=== PATIENT | male | born 1975 | race Caucasian/White ===

== ENCOUNTER 2022-01-02 18:31 | Observation (INO) ==
[2022-01-03] MEDS ORDERED: Sulfamethox/Trimethoprim DS TAB 800/160 mg PO ONE (02:07)
[2022-01-03 10:19] LABS: ABS Basophils 0.1 10^3/ul (0-0.2); ABS Eosinophils 0.2 10^3/ul (0-0.6); ABS Lymphocytes 3.6 10^3/ul (1.0-4.8); ABS Monocytes 0.5 10^3/ul (0-0.8); ABS Neutrophils 3.5 10^3/ul (1.5-7.7); Eosinophil % 2.3 %; Hematocrit 33 % (42-52); Hemoglobin 10.5 g/dL (14.0-18.0); Mean Corpuscular HGB Conc 32 g/dL (31-36); Mean Corpuscular Hemoglobin 26 pg (27-31); Mean Corpuscular Volume 81 fL (80-94); Mean Platelet Volume 7.3 fL (7.4-10.4); Nucleated Red Blood Cells % 0.3; Platelet Count 257 10^3/uL (150-450); Red Blood Count 4.11 10^6 /uL (4.18-5.48); Red Cell Distribution Width 16 % (10-15); White Blood Count 7.9 10^3/uL (3.5-10.8)
[2022-01-03] MEDS ORDERED: Naloxone 0.4 mg VIAL 0.4 mg/ml 1 ml VIAL IV PUSH ONE (10:42)
[2022-01-03 10:54] LABS: Albumin 3.4 g/dL (3.2-5.2); Calcium 8.8 mg/dL (8.6-10.3); Potassium 4.7 mmol/L (3.5-5.0); Total Bilirubin 0.5 mg/dL (0.2-1.0)
[2022-01-03 11:01] LABS: Albumin/Globulin Ratio 0.9 (1-3); C Reactive Protein 22.35 mg/L (<8.01); Globulin 3.8 g/dL (2-4); Total Protein 7.2 g/dL (6.4-8.9); eGFR CKD-EPI 120.3 (>60)
[2022-01-03 11:37] LABS: Urine Appearance Clear; Urine Bilirubin Negative (Negative); Urine Blood Negative (Negative); Urine Color Yellow; Urine Glucose Negative (Negative); Urine Ketones Negative (Negative); Urine Nitrite Negative (Negative); Urine Protein Negative (Negative); Urine Specific Gravity 1.025 (1.005-1.030); Urine Urobilinogen 0.2 (Negative) (Negative)
[2022-01-03 11:53] LABS: Urine Benzodiazepine Screen Presumptive Positive (None Detect); Urine Cannabinoids Screen Presumptive Positive (None Detect); Urine Opiates Screen Presumptive Positive (None Detect)
[2022-01-03 11:58] LABS: Urine Benzodiazepine Screen Presumptive Positive (None Detect); Urine Buprenorphine Screen None Detected (None Detect); Urine Cannabinoids Screen Presumptive Positive (None Detect); Urine Fentanyl Screen Presumptive Positive (None Detect); Urine Hydrocodone Screen None Detected (None Detect); Urine Opiates Screen Presumptive Positive (None Detect)
[2022-01-03] MEDS ORDERED: Lactated Ringers 1000 ml BAG 1,000 ML IV ONE (14:51)
[2022-01-03] MEDS ORDERED: Enoxaparin 40 MG/0.4 ML SYR SUBCUT SCH (15:00)
[2022-01-03 16:04] LABS: Magnesium 1.9 mg/dL (1.9-2.7)
[2022-01-03 16:22] LABS: Ferritin 60.8 ng/mL (24-336)
[2022-01-03] MEDS: Sulfamethox/Trimethoprim DS TAB 800/160 mg PO SCH (21:08)
[2022-01-04 05:53] LABS: Hematocrit 32 % (42-52); Hemoglobin 10.3 g/dL (14.0-18.0); Mean Corpuscular HGB Conc 33 g/dL (31-36); Mean Corpuscular Hemoglobin 26 pg (27-31); Mean Corpuscular Volume 80 fL (80-94); Mean Platelet Volume 7.5 fL (7.4-10.4); Platelet Count 275 10^3/uL (150-450); Red Blood Count 3.96 10^6 /uL (4.18-5.48); Red Cell Distribution Width 15 % (10-15); White Blood Count 6.2 10^3/uL (3.5-10.8)
[2022-01-04 06:02] LABS: INR 1.09 (0.89-1.11)
[2022-01-04 06:27] LABS: Albumin 3.2 g/dL (3.2-5.2); Albumin/Globulin Ratio 0.9 (1-3); Calcium 8.6 mg/dL (8.6-10.3); Globulin 3.6 g/dL (2-4); Magnesium 1.8 mg/dL (1.9-2.7); Potassium 4.2 mmol/L (3.5-5.0); Total Bilirubin 0.4 mg/dL (0.2-1.0); Total Protein 6.8 g/dL (6.4-8.9); eGFR CKD-EPI 111.1 (>60)
[2022-01-04 06:43] LABS: Folate 10.79 ng/mL (5.90-24.80)
[2022-01-04 07:20] LABS: ABS Basophils 0.1 10^3/ul (0-0.2); ABS Eosinophils 0.2 10^3/ul (0-0.6); ABS Lymphocytes 3.3 10^3/ul (1.0-4.8); ABS Monocytes 0.4 10^3/ul (0-0.8); ABS Neutrophils 2.3 10^3/ul (1.5-7.7); Eosinophil % 2.5 %; Lymphocyte % 52.7 %; Nucleated Red Blood Cells % 0.1
[2022-01-04] MEDS ORDERED: Magnesium Sulfate IV 1GM/100ML 1 GM/100 ML BAG IV ONE (07:42)
[2022-01-04] MEDS: Sulfamethox/Trimethoprim DS TAB 800/160 mg PO SCH ×2 (10:40→10:49)
[2022-01-04 11:49] VITALS: BP 129/77
== END 2022-01-04 16:10 | disposition home or self-care (01) ==
LOC: ED 18:31 → EDHOLD 18:31 → SUATTDRO 01-03 14:46 → EDHOLD 01-03 19:41 → MED 01-03 20:39
PROVIDERS: ADMIT Hospitalist; ATTEND Internal Medicine

== ENCOUNTER 2023-06-29 11:07 | Inpatient (IN) ==
[2023-06-29] MEDS ORDERED: diazePAM INJ CARPUJECT 5 MG/ML SYRINGE ONE (11:16)
[2023-06-29] MEDS: diazePAM INJ CARPUJECT 5 MG/ML SYRINGE IM ONE (11:19)
[2023-06-29] MEDS ORDERED: HYDROmorphone 1 MG/1 ML SYRINGE ONE (11:31)
[2023-06-29] MEDS: HYDROmorphone 1 MG/1 ML SYRINGE IV ONE (11:34)
[2023-06-29 11:54] LABS: ABS Basophils 0.1 10^3/uL (0.0-0.1); ABS Monocytes 0.9 10^3/uL (0.0-1.1); ABS Neutrophils 8.9 10^3/uL (1.5-7.6); ABS Nucleated RBC 0.01 10^3/ul; Eosinophil % 0.1 %; Hematocrit 32.3 % (38-53); Hemoglobin 10.9 g/dL (13.2-16.3); Lymphocyte % 17.1 %; Mean Corpuscular Hemoglobin 25.4 pg (27-33); Mean Corpuscular Hgb Conc 33.9 g/dL (31-36); Mean Corpuscular Volume 75.1 fL (80-97); Mean Platelet Volume 7.6 fL (7.5-11.2); Nucleated Red Blood Cells % 0.1 %/100WBC (0.0-0.8); Platelet Count 511 10^3/uL (150-450); Red Cell Distribution Width 15.1 % (12-17)
[2023-06-29] MEDS: Ondansetron 4 mg VIAL 2 MG/ML 2 ml VIAL IV ONE (12:35)
[2023-06-29] MEDS: cefTRIAXone 1 gm/50 mL D5W 1 GM/50 ML BAG IV ONE (12:35)
[2023-06-29] MEDS: HYDROmorphone 1 MG/1 ML SYRINGE IV SLOW PU ONE ×2 (12:40→14:20)
[2023-06-29] MEDS: NS 0.9% 1000 ml BAG 1,000 ML IV ONE ×2 (12:41→14:20)
[2023-06-29 12:48] LABS: Albumin 3.6 g/dL (3.2-5.2); Albumin/Globulin Ratio 0.9 (1-3); C Reactive Protein 58.42 mg/L (<8.01); Calcium 8.9 mg/dL (8.6-10.3); Creatinine, Serum 0.86 mg/dL (0.67-1.17); Globulin 4.2 g/dL (2-4); Magnesium 1.7 mg/dL (1.9-2.7); Potassium 3.9 mmol/L (3.5-5.0); Total Bilirubin 1.3 mg/dL (0.2-1.0); Total Protein 7.8 g/dL (6.4-8.9); eGFR CKD-EPI 108.8 (>60)
[2023-06-29 13:30] LABS: Erythrocyte Sed Rate 80 mm/Hr (0-14)
[2023-06-29] MEDS: Acetaminophen IV 1 GM/100ML 1,000 MG/100 ML BAG IV ONE (13:38)
[2023-06-29] MEDS: Vancomycin 1,000 MG in NS 0.9% 250 ml 250 ML IVPB ONE (14:20)
[2023-06-29] MEDS ORDERED: Ondansetron 4 mg VIAL 2 MG/ML 2 ml VIAL IV PRN (14:52)
[2023-06-29] MEDS ORDERED: Vancomycin per Pharmacy 1 EA NOTE FOLLOW UP SCH (17:00)
[2023-06-29] MEDS: Cefepime 2 GM in Dextrose 2 GM/50 ML BAG IV SCH (17:56)
[2023-06-29] MEDS: Enoxaparin 40 MG/0.4 ML SYR SUBCUT ONE (17:57)
[2023-06-29] MEDS: HYDROmorphone 1 MG/1 ML SYRINGE IV PRN (18:17)
[2023-06-29] MEDS: Vancomycin 1000 MG in NS 0.9% 250 ML IVPB SCH (19:43)
[2023-06-30] MEDS: Cefepime 2 GM in Dextrose 2 GM/50 ML BAG IV SCH (01:56)
[2023-06-30] MEDS: Vancomycin 1000 MG in NS 0.9% 250 ML IVPB SCH (03:50)
[2023-06-30] MEDS ORDERED: Vancomycin per Pharmacy 1 EA NOTE FOLLOW UP PRN (07:05)
[2023-06-30] MEDS: Polyethylene Glycol 3350 17 GM PACKET PO SCH (09:14)
[2023-06-30] MEDS: Vancomycin Trough Check NOTE FOLLOW UP ONE (12:00)
[2023-06-30 12:18] LABS: Creatinine, Serum 0.75 mg/dL (0.67-1.17); Vancomycin Trough 13.1 mcg/mL; eGFR CKD-EPI 113.4 (>60)
[2023-06-30] MEDS: COWS Protocol Daily Order Reminder FOLLOW UP SCH (16:21)
[2023-06-30] MEDS: Enoxaparin 40 MG/0.4 ML SYR SUBCUT SCH (17:03)
[2023-06-30] MEDS: cefTRIAXone 2 gm/50 mL D5W 2 GM/50 ML BAG IV SCH (17:08)
[2023-07-01 06:33] LABS: ABS Basophils 0.1 10^3/uL (0.0-0.1); ABS Eosinophils 0.2 10^3/uL (0.0-0.5); ABS Monocytes 0.3 10^3/uL (0.0-1.1); ABS Neutrophils 2.7 10^3/uL (1.5-7.6); Eosinophil % 4.2 %; Hematocrit 31.3 % (38-53); Hemoglobin 10.4 g/dL (13.2-16.3); Lymphocyte % 37.2 %; Mean Corpuscular Hemoglobin 25.7 pg (27-33); Mean Corpuscular Hgb Conc 33.3 g/dL (31-36); Mean Corpuscular Volume 77.1 fL (80-97); Mean Platelet Volume 7.6 fL (7.5-11.2); Platelet Count 340 10^3/uL (150-450); Red Blood Count 4.06 10^6/uL (4.06-5.63); Red Cell Distribution Width 14.9 % (12-17); White Blood Count 5.4 10^3/uL (3.6-10.2)
[2023-07-01 07:03] LABS: Calcium 8.3 mg/dL (8.6-10.3); Creatinine, Serum 0.76 mg/dL (0.67-1.17); Magnesium 1.9 mg/dL (1.9-2.7); Potassium 4.6 mmol/L (3.5-5.0)
[2023-07-01] MEDS ORDERED: Magnesium Hydroxide LIQ 30 ML UDC PO PRN (09:05)
[2023-07-01] MEDS ORDERED: ceFAZolin 2 GM in NS PREMIX 2 GM/100 ML BAG IVPB SCH (17:00)
[2023-07-01] MEDS: ceFAZolin 2 GM PREMIX 2 GM/50 ML BAG IV SCH (17:33)
[2023-07-01] MEDS ORDERED: Magnesium Hydroxide LIQ 30 ML UDC PO SCH (21:00)
[2023-07-01] MEDS: Senna TAB 8.6 mg TAB PO PRN (22:14)
[2023-07-01] MEDS: Magnesium Hydroxide LIQ 30 ML UDC PO SCH (22:14)
[2023-07-02 05:26] LABS: ABS Basophils 0.1 10^3/uL (0.0-0.1); ABS Eosinophils 0.2 10^3/uL (0.0-0.5); ABS Lymphocytes 2.6 10^3/uL (1.0-4.8); ABS Monocytes 0.4 10^3/uL (0.0-1.1); ABS Neutrophils 3.1 10^3/uL (1.5-7.6); Eosinophil % 3.8 %; Hematocrit 32.9 % (38-53); Hemoglobin 10.8 g/dL (13.2-16.3); Lymphocyte % 40.8 %; Mean Corpuscular Hemoglobin 25.2 pg (27-33); Mean Corpuscular Hgb Conc 32.7 g/dL (31-36); Mean Platelet Volume 7.7 fL (7.5-11.2); Platelet Count 433 10^3/uL (150-450); Red Blood Count 4.27 10^6/uL (4.06-5.63); Red Cell Distribution Width 15.2 % (12-17); White Blood Count 6.5 10^3/uL (3.6-10.2)
[2023-07-02 05:47] LABS: C Reactive Protein 15.62 mg/L (<8.01); Calcium 8.6 mg/dL (8.6-10.3); Creatinine, Serum 0.84 mg/dL (0.67-1.17); Magnesium 1.9 mg/dL (1.9-2.7); Potassium 4.3 mmol/L (3.5-5.0); eGFR CKD-EPI 109.6 (>60)
[2023-07-02] MEDS: Acetaminophen IV 1 GM/100ML 1,000 MG/100 ML BAG IV PRN (08:03)
[2023-07-02] MEDS: HYDROmorphone 1 MG/1 ML SYRINGE IV PRN (12:43)
[2023-07-03 07:00] LABS: ABS Basophils 0.1 10^3/uL (0.0-0.1); ABS Eosinophils 0.4 10^3/uL (0.0-0.5); ABS Lymphocytes 2.6 10^3/uL (1.0-4.8); ABS Monocytes 0.3 10^3/uL (0.0-1.1); ABS Neutrophils 2.6 10^3/uL (1.5-7.6); Eosinophil % 5.8 %; Hematocrit 32.9 % (38-53); Hemoglobin 10.7 g/dL (13.2-16.3); Lymphocyte % 43.3 %; Mean Corpuscular Hemoglobin 25.1 pg (27-33); Mean Corpuscular Hgb Conc 32.6 g/dL (31-36); Mean Corpuscular Volume 77.1 fL (80-97); Mean Platelet Volume 7.8 fL (7.5-11.2); Platelet Count 414 10^3/uL (150-450); Red Blood Count 4.27 10^6/uL (4.06-5.63); Red Cell Distribution Width 14.9 % (12-17)
[2023-07-03 07:18] LABS: Calcium 8.8 mg/dL (8.6-10.3); Creatinine, Serum 0.74 mg/dL (0.67-1.17); Magnesium 2.1 mg/dL (1.9-2.7); Potassium 4.7 mmol/L (3.5-5.0); eGFR CKD-EPI 113.9 (>60)
[2023-07-04 06:00] LABS: ABS Basophils 0.2 10^3/uL (0.0-0.1); ABS Eosinophils 0.4 10^3/uL (0.0-0.5); ABS Lymphocytes 2.7 10^3/uL (1.0-4.8); ABS Monocytes 0.4 10^3/uL (0.0-1.1); ABS Neutrophils 3.9 10^3/uL (1.5-7.6); ABS Nucleated RBC 0.01 10^3/ul; Eosinophil % 4.9 %; Hematocrit 32.7 % (38-53); Hemoglobin 10.7 g/dL (13.2-16.3); Lymphocyte % 35.6 %; Mean Corpuscular Hemoglobin 25.5 pg (27-33); Mean Corpuscular Hgb Conc 32.7 g/dL (31-36); Mean Corpuscular Volume 77.9 fL (80-97); Mean Platelet Volume 7.7 fL (7.5-11.2); Nucleated Red Blood Cells % 0.1 %/100WBC (0.0-0.8); Platelet Count 391 10^3/uL (150-450); Red Cell Distribution Width 15.2 % (12-17); White Blood Count 7.6 10^3/uL (3.6-10.2)
[2023-07-04] MEDS ORDERED: Bupivacaine 0.25% SDV 30 ML ONE (12:53)
[2023-07-04] MEDS ORDERED: fentaNYL 100 mcg/2 ml 50 MCG/ML VIAL ONE (12:55)
[2023-07-04] MEDS ORDERED: Midazolam 2 mg/2 ml VIAL 1 mg/ml 2 ml VIAL (2 mg) ONE (12:56)
[2023-07-04] MEDS ORDERED: Lidocaine 2% PF 5 ML VIAL ONE (12:57)
[2023-07-04] MEDS ORDERED: Propofol 10 MG/ML 20 ML BTL ONE (12:57)
[2023-07-04] MEDS: Lactated Ringers 1000 ml BAG 1,000 ML IV SCH (17:02)
[2023-07-05] MEDS ORDERED: Vancomycin per Pharmacy 1 EA NOTE FOLLOW UP SCH (03:00)
[2023-07-05] MEDS: Vancomycin 1,500 MG in NS 0.9% 250 ml 250 ML IVPB ONE (03:09)
[2023-07-05 05:05] LABS: ABS Monocytes 0.5 10^3/uL (0.0-1.1); ABS Neutrophils 8.3 10^3/uL (1.5-7.6); ABS Nucleated RBC 0.01 10^3/ul; Eosinophil % 0.1 %; Hematocrit 31.5 % (38-53); Hemoglobin 10.5 g/dL (13.2-16.3); Lymphocyte % 18.8 %; Mean Corpuscular Hemoglobin 25.6 pg (27-33); Mean Corpuscular Hgb Conc 33.3 g/dL (31-36); Mean Platelet Volume 7.8 fL (7.5-11.2); Nucleated Red Blood Cells % 0.1 %/100WBC (0.0-0.8); Platelet Count 400 10^3/uL (150-450); Red Blood Count 4.09 10^6/uL (4.06-5.63); Red Cell Distribution Width 15.1 % (12-17); White Blood Count 10.8 10^3/uL (3.6-10.2)
[2023-07-05 05:21] LABS: Calcium 8.8 mg/dL (8.6-10.3); Creatinine, Serum 0.83 mg/dL (0.67-1.17); Potassium 4.6 mmol/L (3.5-5.0)
[2023-07-05] MEDS: Vancomycin 1000 MG in NS 0.9% 250 ML IVPB SCH (11:43)
[2023-07-05] MEDS: Enoxaparin 40 MG/0.4 ML SYR SUBCUT SCH (15:46)
[2023-07-06 06:35] LABS: ABS Basophils 0.1 10^3/uL (0.0-0.1); ABS Eosinophils 0.2 10^3/uL (0.0-0.5); ABS Lymphocytes 2.9 10^3/uL (1.0-4.8); ABS Monocytes 0.4 10^3/uL (0.0-1.1); ABS Neutrophils 3.3 10^3/uL (1.5-7.6); Eosinophil % 3.5 %; Hematocrit 31.1 % (38-53); Hemoglobin 10.3 g/dL (13.2-16.3); Lymphocyte % 41.9 %; Mean Corpuscular Hemoglobin 25.3 pg (27-33); Mean Corpuscular Volume 76.8 fL (80-97); Mean Platelet Volume 7.7 fL (7.5-11.2); Platelet Count 336 10^3/uL (150-450); Red Blood Count 4.05 10^6/uL (4.06-5.63); Red Cell Distribution Width 15.2 % (12-17)
[2023-07-06 07:05] LABS: Calcium 9.2 mg/dL (8.6-10.3); Creatinine, Serum 0.65 mg/dL (0.67-1.17); Potassium 4.6 mmol/L (3.5-5.0); eGFR CKD-EPI 118.4 (>60)
[2023-07-06] MEDS: Vancomycin Trough Check NOTE FOLLOW UP ONE (11:45)
[2023-07-07 06:26] LABS: ABS Basophils 0.1 10^3/uL (0.0-0.1); ABS Eosinophils 0.3 10^3/uL (0.0-0.5); ABS Lymphocytes 2.7 10^3/uL (1.0-4.8); ABS Monocytes 0.4 10^3/uL (0.0-1.1); ABS Neutrophils 2.8 10^3/uL (1.5-7.6); Hematocrit 32.4 % (38-53); Hemoglobin 10.6 g/dL (13.2-16.3); Lymphocyte % 42.6 %; Mean Corpuscular Hemoglobin 25.5 pg (27-33); Mean Corpuscular Hgb Conc 32.8 g/dL (31-36); Mean Corpuscular Volume 77.7 fL (80-97); Platelet Count 362 10^3/uL (150-450); Red Blood Count 4.18 10^6/uL (4.06-5.63); Red Cell Distribution Width 15.7 % (12-17); White Blood Count 6.4 10^3/uL (3.6-10.2)
[2023-07-07 06:43] LABS: Calcium 9.2 mg/dL (8.6-10.3); Creatinine, Serum 0.74 mg/dL (0.67-1.17); Potassium 4.7 mmol/L (3.5-5.0); eGFR CKD-EPI 113.9 (>60)
[2023-07-07 08:50] LABS: Ferritin 31.7 ng/mL (24-336)
[2023-07-07] MEDS: Ferric Gluconate IV 250 MG in NS 0.9% 250 ml 200 ML IVPB SCH (14:17)
[2023-07-08 14:47] VITALS: BP 112/70
[2023-07-09] MEDS ORDERED: Vancomycin Trough Check NOTE FOLLOW UP ONE (10:30)
== END 2023-07-08 19:10 | disposition home or self-care (01) | DRG 314 ==
LOC: EDHOLD 11:07 → ED 11:07 → MED 20:56 → SUATTDRO 07-01 11:23
PROVIDERS: ADMIT Internal Medicine; ATTEND Internal Medicine

== ENCOUNTER 2023-09-18 20:18 | Inpatient (IN) ==
[2023-09-18] MEDS ORDERED: Propofol 10 mg/ml 100 ML BTL 1,000 MG/100 ML BTL ONE (20:19)
[2023-09-18] MEDS: Propofol 10 mg/ml 100 ML BTL 1,000 MG/100 ML BTL IV SCH ×2 (20:30→22:13)
[2023-09-18] MEDS ORDERED: Norepinephrine 4 MG/250mL D5W 4,000 MCG/250 ML BAG IV ONE (20:30)
[2023-09-18] MEDS ORDERED: Rocuronium 50 mg VIAL 10 mg/ml 5 ml VIAL (50 mg) ONE (20:34)
[2023-09-18 21:25] LABS: Urine Appearance Turbid; Urine Bilirubin Negative (Negative); Urine Blood 2+ (Negative); Urine Color Light-Yellow; Urine Glucose 3+ (>=300 mg/dL) (Negative); Urine Ketones Negative (Negative); Urine Nitrite Negative (Negative); Urine Protein 2+ (>=100 mg/dL) (Negative); Urine Specific Gravity 1.009 (1.002-1.030); Urine Urobilinogen Negative (Negative); Urine pH 7.5 (5.0-8.0)
[2023-09-18 21:43] LABS: Urine Benzodiazepine Screen None Detected (None Detect); Urine Cannabinoids Screen None Detected (None Detect); Urine Opiates Screen None Detected (None Detect)
[2023-09-18] MEDS ORDERED: fentaNYL 100 mcg/2 ml 50 MCG/ML VIAL IV SLOW PU ONE (21:45)
[2023-09-18] MEDS: fentaNYL 250 mcg/5 ml 50 MCG/ML 5 ml VIAL (250 MCG) IV ONE (21:45)
[2023-09-18] MEDS ORDERED: fentaNYL 250 mcg/5 ml 50 MCG/ML 5 ml VIAL (250 MCG) ONE (21:46)
[2023-09-18 21:47] LABS: Urine Bacteria Absent /HPF (Absent); Urine Red Blood Cell 3+(>10/hpf) /HPF (0-Trace); Urine Sperm Present /HPF (Absent); Urine White Blood Cell 3+(>20/hpf) /HPF (0-Trace)
[2023-09-18 21:53] LABS: INR 1.16 (0.83-1.13)
[2023-09-18 22:01] LABS: ABS Eosinophils 0.1 10^3/uL (0.0-0.5); ABS Lymphocytes 4.8 10^3/uL (1.0-4.8); ABS Monocytes 0.5 10^3/uL (0.0-1.1); ABS Neutrophils 6.5 10^3/uL (1.5-7.6); ABS Nucleated RBC 0.01 10^3/ul; Eosinophil % 0.6 %; Hematocrit 33.5 % (38-53); Hemoglobin 10.5 g/dL (13.2-16.3); Lymphocyte % 40.1 %; Mean Corpuscular Hemoglobin 26.7 pg (27-33); Mean Corpuscular Hgb Conc 31.4 g/dL (31-36); Mean Corpuscular Volume 85.1 fL (80-97); Mean Platelet Volume 8.4 fL (7.5-11.2); Nucleated Red Blood Cells % 0.1 %/100WBC (0.0-0.8); Platelet Count 355 10^3/uL (150-450); Red Blood Count 3.94 10^6/uL (4.06-5.63); Red Cell Distribution Width 18.1 % (12-17); White Blood Count 11.9 10^3/uL (3.6-10.2)
[2023-09-18 22:02] LABS: Albumin 3.4 g/dL (3.2-5.2); Albumin/Globulin Ratio 1.1 (1-3); Calcium 8.3 mg/dL (8.6-10.3); Globulin 3.2 g/dL (2-4); Potassium 3.8 mmol/L (3.5-5.0); Total Bilirubin 0.5 mg/dL (0.2-1.0); Total Protein 6.6 g/dL (6.4-8.9)
[2023-09-18 22:20] LABS: Creatinine, Serum 0.95 mg/dL (0.67-1.17); eGFR CKD-EPI 100.6 (>60)
[2023-09-18] MEDS: fentaNYL 100 mcg/2 ml 50 MCG/ML VIAL IV SLOW PU ONE (22:20)
[2023-09-18] MEDS: Dexmedetomidine 1,000 MCG in NS 0.9% 250 ml 240 ML IV SCH (22:31)
[2023-09-18 22:39] LABS: Venous Bicarbonate HCO3 17.1 mmol/L (24-28)
[2023-09-18 23:09] LABS: High Sensitivity Troponin 1 Hr 1668 pg/mL (<20)
[2023-09-18 23:27] LABS: PCO2 Arterial 28 mmHg (35-45); PO2 Arterial 115 mmHg (80-100)
[2023-09-18 23:28] LABS: Resp Rate 18
[2023-09-18] MEDS ORDERED: Zosyn per Pharmacy NOTE FOLLOW UP SCH (23:45)
[2023-09-19] MEDS: Chlorhexidine MOUTHWASH 0.12% 15 ML UDC SWISH SPIT SCH (00:49)
[2023-09-19] MEDS: Heparin DRIP 25,000 UNITS BAG 25,000 UNITS/250 ML BAG IV SCH (02:02)
[2023-09-19] MEDS: Heparin 5000 UNITS/ML 1 mL VIAL IV SCH (02:05)
[2023-09-19] MEDS: Piperacillin/Tazobac 3.375 BAG 3.375 GM/100 ML BAG IV ONE (02:10)
[2023-09-19] MEDS ORDERED: Vancomycin 1,000 MG in NS 0.9% 250 ml 250 ML IVPB ONE (02:17)
[2023-09-19] MEDS: Acetaminophen IV 1 GM/100ML 1,000 MG/100 ML BAG IV PRN (02:47)
[2023-09-19] MEDS: Lactated Ringers 1000 ml BAG 1,000 ML IV ONE ×2 (02:53→09:05)
[2023-09-19] MEDS ORDERED: Vancomycin per Pharmacy 1 EA NOTE FOLLOW UP SCH (03:00)
[2023-09-19] MEDS: Pantoprazole VIAL 40 MG VIAL IV SCH (03:19)
[2023-09-19] MEDS: Vancomycin 1,250 MG in NS 0.9% 250 ml 250 ML IVPB ONE (03:19)
[2023-09-19 03:59] LABS: Calcium 8.4 mg/dL (8.6-10.3); Creatinine, Serum 1.56 mg/dL (0.67-1.17); Magnesium 2.1 mg/dL (1.9-2.7); Potassium 3.4 mmol/L (3.5-5.0); eGFR CKD-EPI 55.5 (>60)
[2023-09-19] MEDS ORDERED: Dextrose 50% Syringe 50 ml 25 GM/50 ML SYRINGE IV PUSH PRN (04:11)
[2023-09-19] MEDS: KCL 20 MEQ/100 ML IVPREMIX 20 MEQ/100 ML BAG IV SCH (04:37)
[2023-09-19] MEDS: KCL 20 MEQ/100 ML IVPREMIX 20 MEQ/100 ML BAG ONE (04:43)
[2023-09-19 05:17] LABS: High Sens Troponin Baseline 9588 pg/mL (<20)
[2023-09-19 05:36] LABS: Glucose 304 mg/dL (70-100)
[2023-09-19] MEDS: ZOSYN 3.375 GM Q8H per EXTENDED INFUSION IV SCH (05:58)
[2023-09-19 06:30] LABS: High Sensitivity Troponin 1 Hr 6458 pg/mL (<20)
[2023-09-19 07:13] LABS: ABS Basophils 0.1 10^3/uL (0.0-0.1); ABS Lymphocytes 1.4 10^3/uL (1.0-4.8); ABS Monocytes 1.9 10^3/uL (0.0-1.1); ABS Neutrophils 31.1 10^3/uL (1.5-7.6); ABS Nucleated RBC 0.02 10^3/ul; Anisocytosis 1+; Hematocrit 41.5 % (38-53); Hemoglobin 13.4 g/dL (13.2-16.3); Lymphocyte % 4.1 %; Mean Corpuscular Hemoglobin 26.5 pg (27-33); Mean Corpuscular Hgb Conc 32.3 g/dL (31-36); Mean Platelet Volume 8.1 fL (7.5-11.2); Platelet Count 556 10^3/uL (150-450); Red Blood Count 5.06 10^6/uL (4.06-5.63); Red Cell Distribution Width 17.9 % (12-17); White Blood Count 34.6 10^3/uL (3.6-10.2)
[2023-09-19 07:39] LABS: Resp Rate 18
[2023-09-19 07:42] LABS: PCO2 Arterial 33 mmHg (35-45); PO2 Arterial 121 mmHg (80-100)
[2023-09-19] MEDS: Dextrose 50% Syringe 50 ml 25 GM/50 ML SYRINGE IV PUSH ONE (08:19)
[2023-09-19] MEDS: Lactated Ringers SEPSIS* BAG 2,250 ML IV ONE (08:19)
[2023-09-19 08:33] LABS: Calcium 8.1 mg/dL (8.6-10.3); Creatinine, Serum 1.47 mg/dL (0.67-1.17); Magnesium 1.9 mg/dL (1.9-2.7); Potassium 4.2 mmol/L (3.5-5.0); eGFR CKD-EPI 59.6 (>60)
[2023-09-19 08:37] LABS: High Sensitivity Troponin 3 Hr 5113 pg/mL (<20)
[2023-09-19] MEDS: Vancomycin 1000 MG in NS 0.9% 250 ML IVPB SCH (12:22)
[2023-09-20] MEDS: Lactated Ringers 1000 ml BAG 1,000 ML IV SCH (00:27)
[2023-09-20 04:30] LABS: ABS Basophils 0.1 10^3/uL (0.0-0.1); ABS Monocytes 0.9 10^3/uL (0.0-1.1); ABS Neutrophils 17.9 10^3/uL (1.5-7.6); ABS Nucleated RBC 0.01 10^3/ul; Hematocrit 37.6 % (38-53); Hemoglobin 12.6 g/dL (13.2-16.3); Lymphocyte % 9.7 %; Mean Corpuscular Hemoglobin 26.7 pg (27-33); Mean Corpuscular Hgb Conc 33.5 g/dL (31-36); Mean Corpuscular Volume 79.5 fL (80-97); Mean Platelet Volume 8.2 fL (7.5-11.2); Nucleated Red Blood Cells % 0.1 %/100WBC (0.0-0.8); Platelet Count 480 10^3/uL (150-450); Red Blood Count 4.72 10^6/uL (4.06-5.63); Red Cell Distribution Width 18.2 % (12-17); White Blood Count 20.9 10^3/uL (3.6-10.2)
[2023-09-20 05:13] LABS: Calcium 8.2 mg/dL (8.6-10.3); Creatinine, Serum 1.31 mg/dL (0.67-1.17); Magnesium 1.7 mg/dL (1.9-2.7); Potassium 3.7 mmol/L (3.5-5.0); eGFR CKD-EPI 68.4 (>60)
[2023-09-20] MEDS: Magnesium Sulfate 2 gm BAG 2 GM/50 ML BAG IVPB ONE (08:29)
[2023-09-20] MEDS: Vancomycin Trough Check NOTE FOLLOW UP ONE (14:57)
[2023-09-20] MEDS: Enoxaparin 40 MG/0.4 ML SYR SUBCUT SCH (20:57)
[2023-09-21 04:32] LABS: ABS Lymphocytes 1.6 10^3/uL (1.0-4.8); ABS Monocytes 0.8 10^3/uL (0.0-1.1); ABS Neutrophils 13.4 10^3/uL (1.5-7.6); ABS Nucleated RBC 0.01 10^3/ul; Hematocrit 35.4 % (38-53); Hemoglobin 11.5 g/dL (13.2-16.3); Lymphocyte % 10.1 %; Mean Corpuscular Hemoglobin 25.9 pg (27-33); Mean Corpuscular Hgb Conc 32.5 g/dL (31-36); Mean Corpuscular Volume 79.5 fL (80-97); Mean Platelet Volume 8.1 fL (7.5-11.2); Platelet Count 397 10^3/uL (150-450); Red Blood Count 4.46 10^6/uL (4.06-5.63); Red Cell Distribution Width 18.2 % (12-17); White Blood Count 15.8 10^3/uL (3.6-10.2)
[2023-09-21 04:43] LABS: Albumin 3.1 g/dL (3.2-5.2); Calcium 8.1 mg/dL (8.6-10.3); Creatinine, Serum 1.32 mg/dL (0.67-1.17); Globulin 3.1 g/dL (2-4); Magnesium 2.2 mg/dL (1.9-2.7); Potassium 3.5 mmol/L (3.5-5.0); Total Bilirubin 0.5 mg/dL (0.2-1.0); Total Protein 6.2 g/dL (6.4-8.9); eGFR CKD-EPI 67.8 (>60)
[2023-09-21] MEDS: Vancomycin Trough Check NOTE FOLLOW UP ONE (12:46)
[2023-09-21 13:42] VITALS: BP 140/91
[2023-09-21] MEDS: Midazolam 10 mg/10 ml VIAL 1 mg/ml 10 ml VIAL (10 mg) IV SLOW PU PRN (14:50)
[2023-09-21] MEDS: Morphine 10 MG/ML VIAL (1 ml) IV PRN (14:50)
[2023-09-21] MEDS: Atropine 1% (ORAL/SL) 15 ML BTL SL PRN (14:53)
[2023-09-21] MEDS: Midazolam 10 mg/10 ml VIAL 1 mg/ml 10 ml VIAL (10 mg) ONE (15:01)
== END 2023-09-21 16:46 | disposition expired | DRG 196 ==
LOC: ED 20:18 → EDHOLD 21:56 → SUATTDRO 21:56 → ICU 09-19 00:48
PROVIDERS: ADMIT Student in an Organized Health Care Education/Training Program; ATTEND Internal Medicine Critical Care Medicine